=== PATIENT | female | born 1945 | race Caucasian/White ===

== ENCOUNTER → 2018-01-30 | Outpatient (REF) | payer MEDICARE, OTHER ==
[~2018-01-30] MED LIST: ALLO-2 PO; ASPI-1471 PO; ATOR10TA24 PO; ATOR20TA22; ESCI20TA38 PO; ESOM40CA42 PO; HYDR-3083 PO; HYDR-385 PO; METF-450 PO; METXR500; MON10 PO; OLM20 PO; [UNRECOGNIZED DRUG - CODE] PO
[2018-01-30 15:42] LABS: PLATELET COUNT, AUTOMATED 210 K/uL (150-450)
== END ==
LOC: ZZSTITCHES 15:22
PROVIDERS: ATTEND Physician Assistant
DX: R42 Dizziness and giddiness (principal)
CPT/HCPCS: 82040; 82247; 82310; 82374; 82435; 82565; 82947; 84075; 84132; 84155; 84295; 84450; 84460; 84520; 85025

== ENCOUNTER → 2018-04-21 | Outpatient (REF) | payer MEDICARE, OTHER | LOC: ZZSTITCHES 17:24 | PROVIDERS: ATTEND Physician Assistant | DX: N39.0 Urinary tract infection, site not specified (principal) | CPT/HCPCS: 87088 ==

== ENCOUNTER → 2018-12-20 | Outpatient (CLI) | payer MEDICARE, OTHER ==
--- NOTE | 2018-12-20 14:49 | RADIOLOGY IMAGING REPORT ---
FACILITY: [facility] PATIENT NAME: Amy Parekh : 1945 MR: [id number] V: [id number] EXAM DATE: ORDERING PHYSICIAN: GREG SHARIF TECHNOLOGIST: Location: [facility] Patient: Amy Parekh : 1945 Visit/Account:[id number] Date of Sevice: 12/20/2018 ANKLE 3 VIEW MIN LEFT, FOOT 2 VIEW LEFT Indication: Lateral pain when walking Comparison: None Available Findings: No evidence of fracture, dislocation, or acute osseous abnormality of the left ankle and foot. The ankle mortise is symmetric. There is no significant ankle joint effusion. Enthesopathic changes are noted along the plantar calcaneus. Moderate vascular calcifications are se en. No evidence of radiopaque foreign body. The bones are diffusely osteopenic. Mild degenerative changes are noted involving the interphalangea l joints of the toes. IMPRESSION: 1. No acute osseous abnormality of the left ankle and foot. Mild degenerative changes as described Report Dictated By: Ian Garcia at 12/20/2018 2:40 PM Report E-Signed By: Ian Garcia at 12/20/2018 2:42 PM WSN:[email or web address]
--- NOTE | 2018-12-20 14:50 | RADIOLOGY IMAGING REPORT ---
[place] [facility] [place] NAME: Amy Parekh : 1945 MR: [id number] V: [id number] EXAM DATE: ORDERING PHYSICIAN: GREG SHARIF TECHNOLOGIST: Location: [facility] Patient: Amy Parekh : 1945 Visit/Account:[id number] Date of Sevice: 12/20/2018 ANKLE 3 VIEW MIN LEFT, FOOT 2 VIEW LEFT Indication: Lateral pain when walking Comparison: None Available Findings: No evidence of fracture, dislocation, or acute osseous abnormality of the left ankle and foot. The ankle mortise is symmetric. There is no significant ankle joint effusion. Enthesopathic changes are noted along the plantar calcaneus. Moderate vascular calcifications are se en. No evidence of radiopaque foreign body. The bones are diffusely osteopenic. Mild degenerative changes are noted involving the interphalangea l joints of the toes. IMPRESSION: 1. No acute osseous abnormality of the left ankle and foot. Mild degenerative changes as described Report Dictated By: Ian Garcia at 12/20/2018 2:40 PM Report E-Signed By: Ian Garcia at 12/20/2018 2:42 PM WSN:[email or web address]
== END ==
LOC: RAD 14:09
PROVIDERS: ATTEND Family Medicine
DX: M25.572 Pain in left ankle and joints of left foot (principal)